=== PATIENT | female | born 1990 | race Caucasian/White ===

== ENCOUNTER 2020-12-05 11:19 | Outpatient (CLI) | payer OTHER, SELFPAY ==
[2020-12-05 19:31] LABS: Basophils Percent Auto 0.4 % (0.2-1.2); Eosinophils Absolute Auto 0.1 K/mm3 (0-0.3); Hematocrit 38.1 % (37.0-47.0); Hemoglobin 12.4 g/dL (12.0-15.0); Immature Granulocyte Absolute 0.09 K/mm3 (0.00-0.031); Immature Granulocyte Percent A 0.8 % (0-0.5); Lymphocytes Absolute Auto 2.36 K/mm3 (0.9-3.2); Lymphocytes Percent Auto 21.2 % (18.3-44.2); Mean Corpuscular HGB Conc 32.5 g/dl (32-36); Mean Corpuscular Hemoglobin 27.3 pg (26-34); Mean Corpuscular Volume 83.7 fl (80-100); Mean Platelet Volume 10.7 fl (7.4-10.4); Monocytes Absolute Auto 0.7 K/mm3 (0.1-0.6); Monocytes Percent Auto 6.2 % (2.6-8.5); Neutrophils Absolute Auto 7.8 K/mm3 (1.3-6.7); Neutrophils Percent Auto 70.4 % (45.5-73.1); Platelet Count Result 277 k/mm3 (150-375); Red Blood Count 4.55 M/mm3 (4.2-5.4); Red Cell Distribution Width 14.6 % (11.5-14.5); White Blood Count 11.1 K/mm3 (4.5-10.0)
[2020-12-05 20:22] LABS: HIV 1/2 Ab P24 Ag Result Negative (Negative)
[2020-12-05 20:29] LABS: Hepatitis C Virus Antibody Negative (Negative)
[2020-12-05 20:34] LABS: Hepatitis B Surface Antigen Negative (Negative)
[2020-12-06 11:30] LABS: Rapid Plasma Reagin Non-Reactive (NonReactive)
== END 2020-12-05 11:20 | disposition home or self-care (01) ==
LOC: ANHBWCLAB 11:22
PROVIDERS: Visit Provider Obstetrics & Gynecology
DX: Z34.90 Encounter for supervision of normal pregnancy, unspecified, unspecified trimester (principal); Z3A.00 Weeks of gestation of pregnancy not specified
CPT/HCPCS: 36415; 85025; 86592; 86703; 86762; 86803; 86850; 86900; 86901; 87340; G0432

== ENCOUNTER → 2020-12-08 15:04 | Outpatient (CLI) | payer OTHER, SELFPAY ==
--- NOTE | ~2020-12-08 | US_ITS ---
US OB <=14 wk fetus w TV DATE: 12/08/2020 15:37 INDICATION: Gestational age determination TECHNIQUE: Real-time imaging via transabdominal and transvaginal approaches COMPARISON: None FINDINGS: The uterus measures 9.2 cm height, 4.6 cm AP and 6.3 cm transverse dimension. A normally sh aped intrauterine gestational sac is identified, with normal surrounding decidual reaction. Normal am ount of amniotic fluid. pole and yolk sac are identified. heart rate of 120 bpm. [place]-rump length measurement averages 0.49 cm, consistent with estimated gestational age of 6 weeks 1 day +/- 4 days; MAURO 08/02/2021 2.5 x 2.9 cm left ovarian cyst. The left ovary is otherwise unremarkable. The right ovary is not visu alized. No pelvic mass or abnormal pelvic fluid collection is evident. IMPRESSION: Estimated gestational age of 6 weeks 1 day +/- 4 days; MAURO 08/02/2021 2.5 x 2.9 cm left ovarian cyst Reviewed, dictated and finalized at [facility]. Reviewed, dictated and finalized at location [facility]. IMPRESSION: Estimated gestational age of 6 weeks 1 day +/- 4 days; MAURO 08/02/20 21 2.5 x 2.9 cm left ovarian cyst
== END ==
PROVIDERS: Visit Provider Obstetrics & Gynecology
DX: Z36.9 Encounter for antenatal screening, unspecified (principal); Z3A.01 Less than 8 weeks gestation of pregnancy
CPT/HCPCS: 76801; 76817

== ENCOUNTER → 2021-03-09 12:59 | Outpatient (CLI) | payer OTHER, SELFPAY ==
--- NOTE | ~2021-03-09 | US_ITS ---
US OB /maternal detail DATE: 03/09/2021 13:35 INDICATION: anatomy assessment TECHNIQUE: Real-time imaging and Doppler analysis COMPARISON: 12/09/2019 obstetrical ultrasound FINDINGS: Live oliveira No cerebral ventriculomegaly. The cerebellum, cisterna magna and nuchal fold appear carina l. The spine appears intact. The diaphragm is intact. 4 chamber heart. kidney s are unremarkable, without hydronephrosis. Fluid is demonstrated in the stomach and urin elliot bladder. Intrauterine gestation, fetus in longitudinal lie, vertex presentation, with heart rate of 161 bpm. Fundal placenta. No evidence of placenta previa or abruption. Normal amount of amniotic fluid by subj ective assessment. Biparietal diameter 4.44 cm; 19 weeks 3 days Head circumference 16.45 cm; 19 weeks 1 day Abdominal circumference 15.93 cm; 21 weeks Femur length 3.41 cm; 20 weeks 5 days Composite age by Hadlock formula based upon the current measurements would be 20 weeks 1 day +/- 1 we ek 3 days, with MAURO of 07/2021, compared to 08/02/2021 by the prior 12/09/2019 obstetrical ultrasound examination. Estimated weight: 369.6 +/- 55 g Head circumference/abdominal circumference measures 1.03, slightly below normal range of 1.07-1.25. Femur length/head circumference 20.76, below normal range of 16.67-19.87. IMPRESSION: Normal anatomy screen Reviewed, dictated and finalized at [facility]. Reviewed, dictated and finalized at location [facility]. IMPRESSION: Normal anatomy screen
== END ==
PROVIDERS: Visit Provider Obstetrics & Gynecology
DX: Z34.90 Encounter for supervision of normal pregnancy, unspecified, unspecified trimester (principal); Z3A.00 Weeks of gestation of pregnancy not specified
CPT/HCPCS: 76805

== ENCOUNTER 2021-04-29 13:37 | Observation (INO) | payer OTHER, SELFPAY ==
[2021-04-29 13:51] VITALS: BP 116/66; PULSE 93
[2021-04-29 13:57] VITALS: BMI 40.8
--- NOTE | 2021-04-29 13:57 | OBADM ---
This patient, Sade Martinez, admitted to the OB room OB Post 117 for observation. Patient/family oriented to hospital policies and general routines including ID bracelet, bed and alarms, visiting hours, pain management, procedures, bathroom and other care routines, personal items, smoking policy, room service/diet, and visiting hours. Patient/Family are encouraged to report perceived risks to care and to ask questions if they do not understand what they are told or what they should do.
[2021-04-29 14:01] VITALS: BP 102/62; PULSE 91
[2021-04-29 14:16] VITALS: BP 106/61; PULSE 85
--- NOTE | 2021-04-29 14:17 | PC.NURSE ---
Dr. Peck informed of this pt's arrival in ED with c/o decreased movement since yesterday, hadn't felt baby move at all today. Fever x's 3 days with sore throat, and runny nose. Informed NST reactive at 26 3/7 wks gestation, no contractions, pt marking good movement and current temp 98.4. Orders received.
[2021-04-29 14:21] VITALS: BP 116/66; PULSE 93
--- NOTE | 2021-04-29 15:38 | PC.NURSE ---
Dr. Peck informed pt's rapid strep was negative. Orders for discharge received.
[2021-04-30 17:32] LABS: SARS-CoV-2 RNA PCR Positive
--- NOTE | 2021-04-30 19:25 | PC.NURSE ---
Dr. Arredondo was informed of pt's positive COVID test. MD requested me to notify pt. I called Sade and informed her of her positive COVID status, to continue self-quarantine at home for 10 days, the rest of the household needs to quarantine for 14 days and should not go to school. Pt states she just still has a sore throat, nasal congestion, and runny nose. Informed that if she should start experiencing any shortness of breath she should go to the Emergency Department. Also, to continue to monitor movement. Pt verbalizes understanding.
--- NOTE | 2021-05-16 15:55 | PM.OBTRLD ---
OB - Triage/Final Diagnosis Visit Information Comments/Additional reasons for admission: I have assessed the risk for this patient, Sade Martinez, and determined that she would benefit from observation care. Evaluation Laboratory results: Laboratory Tests 04/29/21 04/29/21 14:28 14:28 SARS-CoV-2 RNA (RT-PCR) Positive A Grp A Beta Strep Ag Negative Final Diagnosis (1) Symptoms of upper respiratory infection (URI): Code(s): R09.89 - Other specified symptoms and signs involving the circulatory and respiratory systems Status: Acute
== END 2021-04-29 16:03 | disposition home or self-care (01) ==
PROVIDERS: Admitting Provider Student in an Organized Health Care Education/Training Program; Visit Provider Student in an Organized Health Care Education/Training Program
DX: O99.512 Diseases of the respiratory system complicating pregnancy, second trimester (principal); J06.9 Acute upper respiratory infection, unspecified; Z3A.26 26 weeks gestation of pregnancy
CPT/HCPCS: 59025; 87081; 87880; C9803; G0378; G0379; U0003; U0005

== ENCOUNTER 2021-05-05 19:34 | Emergency (ER) | payer OTHER, SELFPAY ==
--- NOTE | ~2021-05-05 | CT_ITS ---
EXAMINATION: CTA chest PE protocol DATE: 05/06/2021 00:13 INDICATION: Chest pain and shortness of breath TECHNIQUE: Computed tomography angiography (CTA) of the chest was performed with 100 mL Omnipaque-350 intravenous contrast timed to evaluate the pulmonary arteries. Coronal maximum intensity projection 3D-reconstructions were created by the technologist. The dose-length product (DLP) was 599.51 mGy-cm. Automated exposure control and iterative reconstruction technique were employed. COMPARISON: None. FINDINGS: The pulmonary arteries are moderately well-opacified. No pulmonary embolus is identified. T here are patchy groundglass opacities in the lungs. More focal airspace opacity is seen in the right lower lobe. There is no pleural effusion or pneumothorax. The heart size is normal. There is mild med iastinal lymphadenopathy. IMPRESSION: 1. No pulmonary embolus identified. 2. Patchy airspace opacities consistent with pneumonia, likely COVID 19. 3. Mild mediastinal lymphadenopathy, likely reactive. Reviewed, dictated and finalized at location A.
--- NOTE | ~2021-05-05 | XR_ITS ---
EXAMINATION: XR chest 1V portable INDICATION: Shortness of breath, COVID 19 positive TECHNIQUE: Portable AP chest at 2150 hours COMPARISON: None available FINDINGS: There are minimal airspace opacities of the right lung base. There is no pleural effusion o r pneumothorax. The cardiomediastinal silhouette is normal. IMPRESSION: 1. Minimal right basilar airspace opacity, consistent with atelectasis versus pneumonia. Reviewed, dictated and finalized at location A. IMPRESSION: 1. Minimal right basilar airspace opacity, consistent with atelectasis versus p neumonia.
[2021-05-05 19:46] VITALS: BP 125/60; PULSE 89; RESP 20; TEMP 36.4; O2SAT 100
[2021-05-05 20:09] VITALS: RESP 20
--- NOTE | 2021-05-05 20:21 | PC.NURSE ---
Pt ambulatory to room 17 wihtout difficulty. Reports she is 7 months and due in July. Tested positive for COVID 04/26 after her daughter tested positive. pt's younger daughter then also became infected. Pt reports she feels out of breath at night when she lies down, and also when eating. Able to speak in complete sentences without any s/s of respiratory difficulty. skin pwd. resps even, nonlabored, regular. also c/o intermittent cough, noted by this RN, dry and nonproductive.
--- NOTE | 2021-05-05 21:11 | ED.GENADULT ---
HPI - General Adult General Chief complaint: Unspecified Stated complaint: Has covid Time Seen by Provider: 05/05/21 19:52 Source: patient Mode of arrival: ambulatory Limitations: no limitations History of Present Illness HPI narrative: Pt presents for evaluation of difficulty breathing. She indicates she came here six days ago as she had sensation of decreased movement. She entered through the ER and was transferred to OB Dept. At that time she had what she thought was a common cold. She was swabbed for strep, which was negative. She was swabbed for COVID and received a call the following day informing her that the test was positive. She was not having significant breathing problems at the time of her evaluation here six days ago. Three days ago she noted that she felt like she couldn't catch a deep breath. She states when eating she feels like she needs to gasp for air . At rest, she feels like she needs to take a deep breath. She experiences episodes where she has a sharp pain shooting across her chest. This primarily occurs with deep inspiration. She denies significant cough per se. She states she has not had a fever in the past four to five days. She denies chills and leg swelling. She has some nausea which is difficult her for to determine whether it is related to her . She is currently 27 weeks gestation. She denies any vaginal bleeding/abdominal pain. . OBGYHoang is Dr Arredondo. She does not smoke. She has not received COVID vaccine. No hx of COVID infection prior to this event. No personal or family hx of VTE. Blood type O positive Related Data Home Medications Medication Instructions Recorded Confirmed docosahexaenoic acid 200 mg capsule 200 mg PO DAILY 12/05/20 04/29/21 acetaminophen 500 mg PO Q6H PRN 04/29/21 04/29/21 Allergies Allergy/AdvReac Type Severity Reaction Status Date / Time amoxicillin Allergy Mild RASH Verified 05/05/21 19:50 nitrofurantoin Allergy Mild RASH Verified 05/05/21 19:50 Penicillins Allergy Anaphylaxis Verified 05/05/21 19:50 Review of Systems Review of Systems: CONSTITUTIONAL: Denies fever, chills, or sweats. EYES: Denies visual changes, redness, or discharge. ENT: Denies rhinorrhea, congestion, sore throat, or otalgia. CARDIOVASCULAR: Reports intermittent chest pain. Denies palpitations, or edema. RESPIRATORY: Reports shortness of breath and sensation that she cannot catch a deep breath. GASTROINTESTINAL: Denies abdominal pain, nausea, vomiting, or diarrhea. GENITOURINARY: Denies dysuria or hematuria. SKIN: Denies rash or itching. MUSCULOSKELETAL: Denies back pain, joint pain, or myalgia. NEUROLOGIC: Denies headache, numbness, dizziness, or weakness. PSYCHIATRIC: Denies anxiety or depression. [facility] Past Medical History Medical History Acid reflux Anxiety Surgical History Surgical History Previous section x2 [place] teeth extracted Family History Family History Grandparent Stomach cancer grandmother Other Breast cancer aunt Father Lymph node cancer Social History Social History Smoking status: Never smoker Alcohol intake: current Alcohol use details: maybe 2x per year Substance use: never Exam Narrative: GENERAL: Well-appearing, well-nourished, and in no acute distress. HEAD: Normocephalic, atraumatic. EYES: PERRLA and EOMI. ENT: Nares clear, no rhinorrhea or epistaxis. Mucous membranes moist. Oropharynx without tonsillar hypertrophy exudate or other lesions. Bilateral TMs pearly welch nonbulging NECK: Supple. No adenopathy or masses. No carotid bruits or JVD CHEST: Clear to auscultation. No respiratory distress. No wheezes rales or rhonchi HEART: Regular
--- NOTE | 2021-05-05 21:37 | ECG_ITS ---
Measurements Intervals [place] Rate: 88 P: 30 NE: 147 QRS: -21 QRSD: 84 T: 20 QT: 358 QTc: 435 Interpretive Statements SINUS RHYTHM DELAYED PRECORDIAL R/S TRANSITION LOW VOLTAGE- PRECORDIAL LEADS BASELINE ARTIFACT- I, II, AVR, AVL, V1 BORDERLINE ECG Electronically Signed On 05-06-2021 6:52:10 CDT by Isaias Robledo D.O.
[2021-05-05 22:59] LABS: Basophils Percent Auto 0.3 % (0.2-1.2); Eosinophils Absolute Auto 0.1 K/mm3 (0-0.3); Eosinophils Percent Auto 0.6 % (0-4.4); Hematocrit 40.4 % (37.0-47.0); Hemoglobin 12.8 g/dL (12.0-15.0); Immature Granulocyte Absolute 0.23 K/mm3 (0.00-0.031); Lymphocytes Absolute Auto 2.66 K/mm3 (0.9-3.2); Lymphocytes Percent Auto 22.8 % (18.3-44.2); Mean Corpuscular HGB Conc 31.7 g/dl (32-36); Mean Corpuscular Hemoglobin 26.2 pg (26-34); Mean Corpuscular Volume 82.6 fl (80-100); Mean Platelet Volume 10.2 fl (7.4-10.4); Monocytes Absolute Auto 0.6 K/mm3 (0.1-0.6); Monocytes Percent Auto 5.3 % (2.6-8.5); Neutrophils Absolute Auto 8.1 K/mm3 (1.3-6.7); Platelet Count Result 232 k/mm3 (150-375); Red Blood Count 4.89 M/mm3 (4.2-5.4); Red Cell Distribution Width 14.6 % (11.5-14.5); White Blood Count 11.7 K/mm3 (4.5-10.0)
[2021-05-05 23:11] LABS: INR 0.8; Prothrombin Time 11.5 Seconds (11.1-14.7)
[2021-05-05 23:12] LABS: Albumin Level 3.7 g/dL (3.5-5.1); Aspartate Amino Transferase 34 U/L (14-36); Bilirubin,Total 0.6 mg/dL (0.2-1.3); Blood Urea Nitrogen 7 mg/dL (7-17); Carbon Dioxide 22 mmol/L (22-30); Estimated CRCL calculation 159 ml/min; Estimated Glomerular Filt Rate > 60; Partial Thromboplastin Time 30.9 SECONDS (22.3-36.8)
--- NOTE | 2021-05-05 23:13 | PC.NURSE ---
Pt moved from ED room 18 to ED room 13 via wheelchair in main dept. Report to Tiffany.
[2021-05-05 23:14] LABS: D Dimer 0.75 ug/mL (<0.48)
[2021-05-05 23:23] LABS: Troponin I < 0.012 ng/mL (0.000-0.034)
[2021-05-05 23:33] VITALS: BP 122/82; PULSE 88; RESP 18; O2SAT 98
[2021-05-05 23:33] LABS: Alanine Aminotransferase 33 U/L (4-35); Alkaline Phosphatase 148 U/L (38-126); Anion Gap 8 mmol/L (8-16); Calcium 8.7 mg/dL (8.4-10.2); Chloride 103 mmol/L (98-107); Glucose 80 mg/dL (65-110); Potassium 3.8 mmol/L (3.4-5.0); Sodium 133 mmol/L (137-145)
--- NOTE | 2021-05-05 23:33 | PC.NURSE ---
Assumed care of pt at this time. Pt alert, resting on stretcher. Pt updated on POC.
[2021-05-06 01:51] VITALS: BP 121/72; PULSE 96; RESP 16; O2SAT 98
== END 2021-05-06 02:24 | disposition home or self-care (01) ==
PROVIDERS: Nurse Practitioner; Emergency Provider Emergency Medicine
DX: O98.512 Other viral diseases complicating pregnancy, second trimester (principal); U07.1 COVID-19; R06.02 Shortness of breath; O99.612 Diseases of the digestive system complicating pregnancy, second trimester; K21.9 Gastro-esophageal reflux disease without esophagitis; Z3A.27 27 weeks gestation of pregnancy; R91.8 Other nonspecific abnormal finding of lung field; R94.31 Abnormal electrocardiogram [ECG] [EKG]
CPT/HCPCS: 36415; 71045; 71275; 80053; 84484; 85025; 85380; 85610; 85730; 93005; 99284; Q9967

== ENCOUNTER 2021-05-18 11:24 | Outpatient (CLI) | payer OTHER, SELFPAY ==
[2021-05-18 14:22] LABS: Glucose 1 Hour PP 50gm Dose 146 mg/dL
[2021-05-18 15:03] LABS: HIV 1/2 Ab P24 Ag Result Negative (Negative)
== END 2021-05-18 11:25 | disposition home or self-care (01) ==
PROVIDERS: Visit Provider Obstetrics & Gynecology
DX: Z34.90 Encounter for supervision of normal pregnancy, unspecified, unspecified trimester (principal); Z3A.00 Weeks of gestation of pregnancy not specified
CPT/HCPCS: 36415; 82947; 86703; G0432

== ENCOUNTER 2021-07-16 14:12 | Outpatient (CLI) | payer OTHER, SELFPAY ==
[2021-07-16 14:26] LABS: Glucose Point of Care 116 mg/dl (65-105)
--- NOTE | 2021-07-16 15:24 | PC.NURSE ---
1430--Phone call to Dr. Arredondo that pt. was sent over by the office for blood sugar check. Reported accucheck of 116, orders to DC home.
== END 2021-07-16 14:30 | disposition home or self-care (01) ==
LOC: ANHOBOP 14:16 → ANHOBPP 14:17
PROVIDERS: Visit Provider Obstetrics & Gynecology
DX: R73.09 Other abnormal glucose (principal)
CPT/HCPCS: 82948; 99199

== ENCOUNTER 2021-07-26 16:24 | Outpatient (CLI) | payer OTHER, SELFPAY ==
[2021-07-26 16:43] LABS: Hematocrit 36.8 % (37.0-47.0); Hemoglobin 11.9 g/dL (12.0-15.0); Mean Corpuscular HGB Conc 32.3 g/dl (32-36); Mean Corpuscular Hemoglobin 25.8 pg (26-34); Mean Corpuscular Volume 79.7 fl (80-100); Mean Platelet Volume 10.6 fl (7.4-10.4); Platelet Count Result 238 k/mm3 (150-375); Red Blood Count 4.62 M/mm3 (4.2-5.4); Red Cell Distribution Width 14.4 % (11.5-14.5); White Blood Count 10.1 K/mm3 (4.5-10.0)
[2021-07-27 09:08] LABS: Rapid Plasma Reagin Non-Reactive (NonReactive)
== END 2021-07-26 16:25 | disposition home or self-care (01) ==
LOC: ANHLAB 16:27
PROVIDERS: Visit Provider Obstetrics & Gynecology
DX: O34.211 Maternal care for low transverse scar from previous cesarean delivery (principal); Z3A.39 39 weeks gestation of pregnancy
CPT/HCPCS: 36415; 85027; 86592; 86850; 86900; 86901

== ENCOUNTER 2021-07-27 08:35 | Inpatient (IN) | payer OTHER, SELFPAY ==
--- NOTE | 2021-07-26 15:52 | P.HP_ITS ---
H&P: HPI History of Present Illness Date/Time: 07/26/21 15:52 at 39+1 with two prior C sections coming in for elective repeat C/S + BTL. She has had GDMA1 diet controlled this . No complaints today Chief Complaint: prior C/S, desires sterilization Review of Systems Review of Systems: All systems reviewed & are unremarkable except as noted in HPI and below PMFSH Past Medical History Medical History Acid reflux Anxiety Surgical History Surgical History Previous section x2 [place] teeth extracted Family History Family History Grandparent Stomach cancer grandmother Other Breast cancer aunt Father Lymph node cancer Social History Social History Smoking status: Never smoker Alcohol intake: current Alcohol use details: maybe 2x per year Substance use: never Spiritual care concerns: No Meds Home Medications and Allergies Home Medications Medication Instructions Recorded Confirmed Type docosahexaenoic acid 200 mg capsule 200 mg PO DAILY 12/05/20 07/21/21 History acetaminophen 500 mg PO Q6H PRN 04/29/21 07/21/21 History docusate sodium 50 mg capsule 50 mg PO DAILY 06/05/21 07/21/21 History Allergies Allergy/AdvReac Type Severity Reaction Status Date / Time amoxicillin Allergy Mild RASH Verified 07/18/21 11:16 nitrofurantoin Allergy Mild RASH Verified 07/18/21 11:16 Penicillins Allergy Anaphylaxis Verified 07/18/21 11:16 Exam Const: General: healthy appearing, no acute distress, well developed, alert and awake Resp: Auscultation: clear to auscultation bilaterally Cardio: Rate: regular rate Rhythm: regular rhythm GI: Inspection: non-distended GI Palp: Yes Soft to palpation, No Tenderness to palpation present (GI) and Yes Other GI palpation findings present (gravid) Extrem: General: no pedal edema and no calf tenderness Psych: Mental Status: mental status grossly normal Assessment and Plan Assessment and plan (1) Previous delivery affecting : Code(s): O34.219 - Maternal care for unspecified type scar from previous delivery Status: Acute Assessment and Plan: at 39+1 with two prior C section, planning repeat C/S. She signed consent after risks, benefits, complications, and alternatives discussed for C/S + BTL. She expressed understanding and wishes to proceed (2) Encounter for sterilization: Code(s): Z30.2 - Encounter for sterilization Status: Acute (3) Gestational diabetes: Code(s): O24.419 - Gestational diabetes mellitus in , unspecified control Status: Acute Assessment and Plan: testing has been reassuring, diet control
[2021-07-27] VITALS (67 sets, daily range): BP systolic 68–125; BP diastolic 35–82; PULSE 59–166; RESP 14–18; TEMP 36.3–36.8; O2SAT 89–100; BMI 43.7
[2021-07-27 09:06] LABS: Glucose Point of Care 82 mg/dl (65-105)
[2021-07-27] MEDS: LACTATED RINGERS 1,000 ML 125 ML IV CONT (09:13)
--- NOTE | 2021-07-27 09:22 | LDADM ---
This patient, Sade Martinez, was admitted to Labor/Delivery/Recovery 120 on 07/27/21 at 08:35. Plans for section, pain management and were discussed with patient. Patient/family oriented to hospital policies and general routines including ID bracelet, bed and alarms, visiting hours, pain management, procedures, bathroom and other care routines, personal items, smoking policy, room service/diet and guest tray routines, security routines, and visiting hours. Patient/Family are encouraged to report perceived risks to care and to ask questions if they do not understand what they are told or what they should do. See OBIX for further documentation.
--- NOTE | 2021-07-27 10:05 | WPDHPUPDATE1 ---
History and Physical Update Update Date/Time: 07/27/21 10:05 History and Physical has been reviewed, including an updated exam of the patient. There are NO changes in the patient's condition. Risks, benefits, and alternatives have been discussed and questions answered. Patient agrees to proceed with procedure.
--- NOTE | 2021-07-27 10:08 | WPDANESEPPF ---
Anes - Initial Pre Proc Eval Procedure: Operation Date: 07/27/21 09:00 Proposed Procedures p Repeat Section with Bilateral Tubal Sterilization - Barbie Arredondo MD Date/Time: 07/27/21 10:08 Surgeon: Barbie Arredondo MD Pre Op Diagnosis: Section Patient Data Age: 31 Gender: F Height: 1.6 m Weight: 112 kg Last Vital Signs Temp 36.4 C 07/27/21 09:48 Pulse 85 07/27/21 09:19 BP 125/66 07/27/21 09:19 Allergies Allergy/AdvReac Type Severity Reaction Status Date / Time amoxicillin Allergy Mild RASH Verified 07/18/21 11:16 nitrofurantoin Allergy Mild RASH Verified 07/18/21 11:16 Penicillins Allergy Anaphylaxis Verified 07/18/21 11:16 Home Medications Medication Instructions Recorded Confirmed Type docosahexaenoic acid 200 mg capsule 200 mg PO DAILY 12/05/20 07/27/21 History acetaminophen 500 mg PO Q6H PRN 04/29/21 07/21/21 History docusate sodium 50 mg capsule 50 mg PO DAILY 06/05/21 07/21/21 History Laboratory Tests 07/27/21 09:02 POC Capillary Glucose 82 mg/dl mg/dl (65-105) Patient hx anesthesia problems: none Family hx anesthesia problems: none Results Review: All pre-operative results and documents have been reviewed as part of the pre-operative evaluation. [facility] Past Medical History Medical History Acid reflux Anxiety Surgical History Surgical History Previous section x2 [place] teeth extracted Family History Family History Grandparent Stomach cancer grandmother Other Breast cancer aunt Father Lymph node cancer Social History Social History Smoking status: Never smoker Alcohol intake: current Alcohol use details: maybe 2x per year Substance use: never Spiritual care concerns: No Anes - Eval Final PreProcedure Day of Procedure 07/27/21 10:08 Patient weight: morbidly obese Heart: regular rate and rhythm Lungs: clear to auscultation Airway: Mallampati scale class II Neurological: alert and oriented Last oral intake: >/= 8 hours ASA classification: III Emergent: no Anesthetic plan: proceed Anesthesia type and monitoring: regional spinal and standard monitoring Results Review: All pre-operative results and documents have been reviewed as part of the pre-operative evaluation. Informed Consent: The patient's anesthetic plan and its attendant risks and benefits were discussed with the patient/family/POA. Questions were solicited and answers provided to the satisfaction of the patient/family/POA.
--- NOTE | 2021-07-27 10:14 | P.OP_ITS ---
Procedure Note - Detailed Date of Procedure 07/27/21 Pre-op Diagnosis Prior Section X 2, desires sterilization Post-op Diagnosis same Procedure Performed Repeat LTCS + BTL Surgeon Barbie Arredondo MD Anesthesia spinal Indications at 39+1 with two prior C sections and desires sterilization Findings Male , cephalic, Apgars 8/9; weight 8# 3oz; normal uterus, tubes, ovaries Description of Procedure She was taken to the operating room where spinal anesthesia was obtained and found to be adequate. She was prepared and draped in the normal sterile fashion in the dorsal supine position with a leftward tilt. A Pfannenstiel skin incision was made over her prior incision with a scalpel and extended to the underlying layer of fascia. The fascia was incised in the midline with a scalpel and extended laterally with the Chahal scissors. The underlying rectus muscles were dissected off sharply. Rectus muscles were in the midline. The peritoneum was entered sharply and extended inferiorly and superiorly with good visualization of the bladder. The bladder blade was inserted. The vesicouterine peritoneum was tented up and entered sharply with the Metzenbaum scissors. The bladder flap was created sharply. The bladder blade was reinserted. The lower uterine segment was incised in a transverse fashion with the scalpel. The incision was digitally stretched in a cephalocaudal direction. The membranes were ruptured with clear fluid noted. The infant's head was delivered atraumatically. The shoulders and body were delivered easily. The cord was clamped x2 and cut. The was passed to the awaiting nurse. Cord gas and cord blood was obtained. The placenta was manually extracted. The uterus was exteriorized cleared of all clots and debris. The uterine incision was closed using 0 Vicryl in a running locked fashion. A 2nd layer of the same suture was used for hemostasis and reinforcement. Attention was then turned to the fallopian tubes. A defect was made in the right mesosalpinx. Two free ties of 0 plain gut were placed. The intervening segment of fallopian tube was excised. The same procedure was then performed on the left fallopian tube. The uterine incision was reinspected. There was a bleeding point that was easily controlled using 0 Vicryl [id number] suture. The uterus was returned to the abdomen. The gutters were cleared of all clots and debris. The uterine incision was reinspected and found to be hemostatic. The rectus muscles were inspected. Any bleeding points were cauterized. The rectus muscles were reapproximated using 0 Vicryl [id number] sutures. The fascia was then closed using 0 Vicryl in a running fashion. The subcutaneous tissue was irrigated. Any bleeding points were cauterized. The subcutaneous layer was reapproximated using 2 0 Vicryl [id number] sutures. The skin was closed with Insorb absorbable asa. She tolerated the procedure well. Sponge, lap, needle, and instrument counts w ere correct x2. She was taken to the recovery room in stable condition. Estimated Blood Loss 590 Drains Yes ([place]) Packing No Pathology yes Complications No immediate complications Condition stable Disposition floor
[2021-07-27] MEDS: ceFAZolin 2 GM/D5W 50 ML 2 GM/50 ML BAG IVPB (10:19)
[2021-07-27] MEDS: OXYTOCIN 30 UNITS/NS 500 ML 30 UNITS/500 ML BAG 125 UNITS IV CONT (12:04)
[2021-07-27] MEDS: LORATADINE 10 MG TABLET PO (12:58)
--- NOTE | 2021-07-27 14:52 | OBPPTRN ---
Patient transferred to post room # 283 via stretcher. Support person present. Oriented to unit, room, information board, rooming in, admission packet and security measures. Patient verbalizes understanding.
--- NOTE | 2021-07-27 15:00 | PC.NURSE ---
Consult with pt., discussed initiation of pumping due to infant in Level II. Mother does not want to pump at this time. Pump kit provided and set up bedside. Instructions given on breast pump care and usage, pumping schedule, nipple care, and collection and storage of breast milk. Encouraged breast massage and manual expression to stimulate supply. Assessed patient for correct flange size, placement and draw. Patient verbalizes and demonstrates understanding of instructions. Advised mother to call out for her RN when ready to pump and to check flange size while pumping.
[2021-07-27] MEDS: DEXTROSE 5%/0.45% SOD CHL 1,000 ML 125 ML IV CONT (16:00)
[2021-07-27] MEDS: HYDROcodone/acetaminophen (*CRX) 5-325 MG TABLET 1 TAB PO (19:32)
[2021-07-27] MEDS: diphenhydrAMINE HCl INJ 50 MG/ML VIAL IV PUSH (20:13)
[2021-07-27] MEDS: IBUPROFEN 600 MG TABLET PO (22:38)
[2021-07-28 00:30] VITALS: BP 119/67; PULSE 86; RESP 16; TEMP 37.6; O2SAT 99
[2021-07-28 04:24] VITALS: BP 101/79; PULSE 80; RESP 16; TEMP 37.2; O2SAT 98
[2021-07-28 04:47] LABS: Basophils Percent Auto 0.3 % (0.2-1.2); Eosinophils Absolute Auto 0.1 K/mm3 (0-0.3); Eosinophils Percent Auto 0.5 % (0-4.4); Hematocrit 29.8 % (37.0-47.0); Hemoglobin 9.5 g/dL (12.0-15.0); Immature Granulocyte Absolute 0.08 K/mm3 (0.00-0.031); Immature Granulocyte Percent A 0.6 % (0-0.5); Lymphocytes Percent Auto 14.9 % (18.3-44.2); Mean Corpuscular HGB Conc 31.9 g/dl (32-36); Mean Corpuscular Hemoglobin 25.2 pg (26-34); Mean Platelet Volume 10.9 fl (7.4-10.4); Monocytes Percent Auto 8.1 % (2.6-8.5); Neutrophils Absolute Auto 9.6 K/mm3 (1.3-6.7); Neutrophils Percent Auto 75.6 % (45.5-73.1); Platelet Count Result 194 k/mm3 (150-375); Red Blood Count 3.77 M/mm3 (4.2-5.4); Red Cell Distribution Width 14.5 % (11.5-14.5); White Blood Count 12.8 K/mm3 (4.5-10.0)
[2021-07-28] MEDS: MULTIVIT/MIN/PREN/FOL AC/IRON TABLET 1 TAB PO (07:45)
[2021-07-28] MEDS: POLYSACCHARIDE IRON COMPLEX 150 MG CAPSULE PO ×2 (07:45→16:46)
[2021-07-28] MEDS: HYDROcodone/acetaminophen (*CRX) 5-325 MG TABLET 1 TAB PO ×3 (07:46→23:35)
[2021-07-28] MEDS: DOCUSATE SODIUM 100 MG CAPSULE PO ×2 (07:46→16:47)
[2021-07-28] MEDS: IBUPROFEN 600 MG TABLET PO ×3 (07:46→23:34)
[2021-07-28 08:00] VITALS: BP 97/56; PULSE 70; RESP 16; TEMP 37.1; O2SAT 99
--- NOTE | 2021-07-28 10:13 | PM.OBPNVD ---
OB - PN: Subj Subjective Date/time seen: 07/28/21 10:13 Patient comments: no complaints, pain well controlled, incisional pain, tolerating diet, flatus present and other (Lochia similar to menses) baby status: doing well OB - PN: Obj Data Labs CBC & Chem 7: 07/28/21 04:21 Labs: Laboratory Results - last 24 hr 07/28/21 04:21 WBC 12.8 H RBC 3.77 L Hgb 9.5 L Hct 29.8 L MCV 79.0 L MCH 25.2 L MCHC 31.9 L RDW 14.5 Plt Count 194 MPV 10.9 H Immature Gran % (Auto) 0.6 H Neut % (Auto) 75.6 H Lymph % (Auto) 14.9 L [place] % (Auto) 8.1 Eos % (Auto) 0.5 Baso % (Auto) 0.3 Lymph # (Auto) 1.90 [place] # (Auto) 1.0 H Eos # (Auto) 0.1 Baso # (Auto) 0.0 Abs Immat Gran (auto) 0.08 H Absolute Neuts (auto) 9.6 H Absolute Nucleated RBC 0.0 Nucleated RBC % 0.0 OB - PN A/P Plan day: 1 (s/p C section, doing well) Plan: routine care Time Spent With Patient Time: Total time spent is greater than 50% in coordination of care (as documented) at patient's floor/unit and/or counseling patient: Exam Const: General: no acute distress Resp: Auscultation: clear to auscultation bilaterally Cardio: Rate: regular rate Rhythm: regular rhythm GI: Inspection: non-distended, incision (Intact without erythema, drainage, or induration) and other (Fundus firm and nontender at umbilicus) GI Palp: Yes abdominal tenderness (appropriate ) and Yes Soft to palpation Extrem: General: no edema
--- NOTE | 2021-07-28 11:16 | WPDANLDPN2 ---
Anes-Prog Note L&D Date/Time: 07/28/21 11:16 Comfortable throughout: section Neuraxial method: spinal Epidural/Spinal procedure site: tender Neuro status: Neuro function grossly intact. Cardiovascular status: normal Respiratory status: normal Airway patency: baseline Mental status: baseline Post-Op hydration status: normal Vital Signs: Last Vital Signs Temp 98.7 F 07/28/21 08:00 Pulse 70 07/28/21 08:00 Resp 16 07/28/21 08:00 BP 97/56 L 07/28/21 08:00 Pulse Ox 99 07/28/21 08:00 Pain score (VAS): 2 I/O: Intake & Output 07/27/21 07/28/21 07/28/21 23:59 07:59 15:59 Intake Total 600 Output Total 2350 300 Balance -1750 -300 Post-procedural complaints: pruritis severe, treatment refractory (meds X two. continue to experience mild itching this am however, pt reports improving) Patient feedback: Patient satisfied with anesthetic care.
--- NOTE | 2021-07-28 11:17 | WPDANLDNPN2 ---
Anes-Prog Note L&D-Neuraxial Date/Time: 07/28/21 11:17 Neuraxial medications: intrathecal PF morphine Opiod-related complaints: pruritis severe, treatment refractory Patient feedback: Patient satisfied with post-operative pain management.
[2021-07-28 18:26] VITALS: BP 131/69; PULSE 72; RESP 18; TEMP 36.3; O2SAT 100
[2021-07-29] MEDS: HYDROcodone/acetaminophen (*CRX) 10-325 MG TABLET 1 TAB PO (01:28)
--- NOTE | 2021-07-29 01:37 | PC.NURSE ---
Daylight Savings Time For Daylight Savings Time Ending in the Fall - Clocks are moved back. For [facility], the time of change occurs at 0200 hrs. Time is taken from the enlisted aircrew/aerial observer/gunner. This entry on the patient's chart recognizes the change in time reflected during documentation. Example: 2 entries for vital signs may be charted for 0200 hrs.
[2021-07-29] MEDS: HYDROcodone/acetaminophen (*CRX) 5-325 MG TABLET 1 TAB PO ×4 (06:15→19:37)
[2021-07-29] MEDS: IBUPROFEN 600 MG TABLET PO ×3 (06:15→19:36)
[2021-07-29 08:30] VITALS: BP 93/46; PULSE 72; RESP 16; TEMP 36.9; O2SAT 98
[2021-07-29] MEDS: MULTIVIT/MIN/PREN/FOL AC/IRON TABLET 1 TAB PO (09:07)
[2021-07-29] MEDS: DOCUSATE SODIUM 100 MG CAPSULE PO ×2 (09:07→16:44)
[2021-07-29] MEDS: POLYSACCHARIDE IRON COMPLEX 150 MG CAPSULE PO ×2 (09:08→16:44)
--- NOTE | 2021-07-29 10:45 | PM.OBPNVD ---
OB - PN: Subj Subjective Date/time seen: 07/29/21 10:45 Patient comments: no complaints, pain well controlled, tolerating diet, flatus present and other (Ambulating and voiding without problems. Lochia similar to menses) baby status: doing well OB - PN: Obj Data Labs CBC & Chem 7: 07/28/21 04:21 OB - PN A/P Plan day: 2 (s/p C section, doing well) Plan: routine care Time Spent With Patient Time: Total time spent is greater than 50% in coordination of care (as documented) at patient's floor/unit and/or counseling patient: Exam Const: General: no acute distress Resp: Auscultation: clear to auscultation bilaterally Cardio: Rate: regular rate Rhythm: regular rhythm GI: Inspection: non-distended, incision (Intact without erythema, drainage, or induration) and other (Fundus firm and nontender below umbilicus) GI Palp: Yes abdominal tenderness (appropriate) and Yes Soft to palpation Extrem: General: no edema
--- NOTE | 2021-07-29 17:08 | PC.NURSE ---
RN continues to stress the importance of keeping baby under phototherapy; mother instructed to only take baby out of lights for feedings and diaper changes; mother verbalizes understanding.
--- NOTE | 2021-07-29 17:10 | PC.NURSE ---
1300-Baby was given supplemental bottle; mother states that baby does not like the formula and made RN aware that baby spit up a large amount of formula.
[2021-07-29 19:00] VITALS: BP 155/75; PULSE 66; RESP 18; TEMP 36.4; O2SAT 99
[2021-07-30] MEDS: HYDROcodone/acetaminophen (*CRX) 5-325 MG TABLET 1 TAB PO ×3 (00:04→13:10)
[2021-07-30] MEDS: HYDROcodone/acetaminophen (*CRX) 10-325 MG TABLET 1 TAB PO (04:30)
[2021-07-30] MEDS: IBUPROFEN 600 MG TABLET PO ×2 (04:30→13:11)
[2021-07-30 08:00] VITALS: BP 135/79; PULSE 78; RESP 16; TEMP 36.8
--- NOTE | 2021-07-30 08:07 | PM.OBPNVD ---
OB - PN: Subj Subjective Date/time seen: 07/30/21 08:07 Patient comments: no complaints, pain well controlled, tolerating diet, flatus present and other (Lochia less than menses. Ambulating and voiding without problems) baby status: doing well Narrative: No RICHEY/visual changes. Still c/o pain at upper buttocks, pain meds take the edge off OB - PN: Obj Data Labs CBC & Chem 7: 07/28/21 04:21 OB - PN A/P Plan day: 3 (s/p section, doing well and ready to be discharged home) Plan: routine care, discharge home and other (Follow up in office in 1-2 weeks) Time Spent With Patient Time: Total time spent is greater than 50% in coordination of care (as documented) at patient's floor/unit and/or counseling patient: Time with patient: less than 15 minutes Exam Const: General: no acute distress Resp: Auscultation: clear to auscultation bilaterally Cardio: Rate: regular rate Rhythm: regular rhythm GI: Inspection: non-distended, incision (Intact without erythema, drainage, or induration) and other (Fundus firm and nontender below umbilicus) GI Palp: Yes abdominal tenderness (appropriate) and Yes Soft to palpation Extrem: General: no edema
--- NOTE | 2021-07-30 08:08 | PM.OBDSVD ---
DS: Admitting Diagnosis Discharge Date 07/30/2021 Admitting Diagnosis Prior c section, desires sterilization DS: Discharge Diagnosis Discharge Diagnosis (1) Previous delivery affecting : Code(s): O34.219 - Maternal care for unspecified type scar from previous delivery Status: Acute (2) Encounter for sterilization: Code(s): Z30.2 - Encounter for sterilization Status: Acute OB - DS: Summary OB Procedures : None and Other (gestational diabetes) OB Procedures Intrapartum: low cervical, transverse and Tubal ligation OB Procedures: : None Peripartum Data Delivery Method: Section Procedures: Procedures Operation Date: 07/27/21 09:00 Actual Procedure Side Surgeon p Repeat Section with Bilateral Tubal Sterilization Not Applicable Barbie Arredondo MD complications: none Status at Discharge Functional status at discharge: independent ambulation Overall status at discharge: patient is progressing back to baseline Time Spent with Patient Time attestation: Total time spent providing and/or coordinating discharge services: Time spent: Less than 30 minutes DS: Data Data Completed and Pending Pending studies at discharge: Pending at discharge 07/27/21 11:03 Surgical [PTH] Routine Surgical [PTH] Routine Surgical [PTH] Routine Discharge Plan Discharge Attending physician on discharge: Barbie Arredondo Discharging Clinician: Barbie Arredondo Patient Disposition: Home, Self-Care Activity: may shower and pelvic rest Diet: as tolerated Wound Care Instructions: incision open to air Patient Instructions: Antibiotic Form Stand Alone Forms: General Discharge Information Follow-up/Referrals: Barbie Arredondo MD [Physician] - 1 Week Discharge Medications: New hydrocodone-acetaminophen 5-325 mg Tablet 1 tablet PO Q4H PRN (Reason: Moderate Pain (4-6)) Qty: 40 RF: 0 ibuprofen 600 mg Tablet 600 mg PO Q6H PRN (Reason: Cramping) Qty: 60 RF: 0 Continued Stool Softener 50 mg capsule 50 mg PO DAILY RF: 0 DHA 200 mg capsule 200 mg PO DAILY RF: 0 acetaminophen 500 mg Capsule 500 mg PO Q6H PRN (Reason: Pain) RF: 0 Date of admission: 07/27/21 08:35 Primary Care Provider: PHYSICIAN,PRODUCTION OPERATIONS INSPECTOR Admitting Provider: Barbie Arredondo Attending physician on admission: Barbie Arredondo Condition: Stable
--- NOTE | 2021-07-30 08:15 | PC.NURSE ---
Consult with pt., observed mother is able to independently latch with appropriate positioning/alignment. eagerly latches on first attempt with long rhythmical draws and frequent swallowing noted. She denies any nipple discomfort, is feeding as required and waking to feed if needed. Infant has had at least 8 effective feedings in the past 24 hours, and is currently meeting outcomes for weight, output, jaundice and feeding frequencies. Mother states she feels confident to continue effective at home. Reviewed transition to breast milk, signs of adequate intake, and engorgement/relief. Instructed to call ICP if intake/output less than required. Reviewed regular medications mother is taking. Information provided per Miroslava. Reviewed community resources on the [email or web address] website and in the Mom/Baby guide. Information on outpatient services provided. Mother has no further questions at this time. Instructed feeding should be initiated three hours from start of last feeding or if feeding cues are noted before until seen by ICP. Mother voiced understanding of information shared. Mother has initiated pumping due to earlier infant in Level II and under bili lights, mother's milk is now in and now has 2.5 oz at bedside. Mother states she plans to offer EBM after due to weight loss. Reviewed Jaundice, weight and output are within parameters at this time and supplementation is not required. Mother states she feels she will continue for the next few days.
[2021-07-30] MEDS: DOCUSATE SODIUM 100 MG CAPSULE PO (09:18)
[2021-07-30] MEDS: POLYSACCHARIDE IRON COMPLEX 150 MG CAPSULE PO (09:18)
[2021-07-30] MEDS: MULTIVIT/MIN/PREN/FOL AC/IRON TABLET 1 TAB PO (09:18)
--- NOTE | 2021-07-30 12:50 | PC.NURSE ---
Patient received instruction on viewing the discharge video Mother & Baby Care, The First Two Weeks . Patient was given the opportunity and encouraged to ask questions. Patient verbalized understanding of information shared and has been given the mother/baby guide for home reference.
[2021-08-01 10:56] VITALS: BP 135/61; PULSE 89; RESP 16; TEMP 37; O2SAT 100
== END 2021-07-30 14:25 | disposition home or self-care (01) | DRG 785 ==
LOC: ANHLDR 08:39 → ANHOB2 14:35
PROVIDERS: Admitting Provider Obstetrics & Gynecology; Visit Provider Obstetrics & Gynecology
PROC: 10D00Z1 Extraction of Products of Conception, Low, Open Approach (ICD-10-PCS; CPT 59514; principal; 2021-07-27 09:00)
DX: O34.219 Maternal care for unspecified type scar from previous cesarean delivery (principal); Z30.2 Encounter for sterilization; O24.420 Gestational diabetes mellitus in childbirth, diet controlled; Z3A.39 39 weeks gestation of pregnancy; Z37.0 Single live birth
CPT/HCPCS: 36415; 82948; 85025; 85027; 86592; 86850; 86900; 86901; 88302; 88307; A9270; J0131; J0690; J1200; J2274; J2370; J2405; J2590; J7120

== ENCOUNTER 2021-10-18 11:44 | Outpatient (CLI) | payer OTHER, SELFPAY ==
[2021-10-18 12:43] LABS: Glucose Fasting 105 mg/dL
[2021-10-18 15:16] LABS: Glucose 1 Hour 181 mg/dL
[2021-10-18 15:42] LABS: Glucose 2 Hour 163 mg/dL
== END 2021-10-18 11:45 | disposition home or self-care (01) ==
PROVIDERS: Visit Provider Obstetrics & Gynecology
DX: O24.419 Gestational diabetes mellitus in pregnancy, unspecified control (principal); Z3A.00 Weeks of gestation of pregnancy not specified
CPT/HCPCS: 36415; 82951

== ENCOUNTER 2022-08-16 11:56 | Emergency (ER) | payer OTHER, SELFPAY ==
[2022-08-16 13:35] VITALS: BP 127/73; PULSE 77; RESP 18; TEMP 37; O2SAT 100
--- NOTE | 2022-08-16 15:09 | ED.URI ---
HPI - URI/Sore Throat General Chief Complaint: Upper Respiratory Infection Stated Complaint: sorethroat,fever Source: patient Mode of arrival: ambulatory History of Present Illness HPI Narrative: This is a 32-year-old female presented to our urgent care with complaints of throat pain that started yesterday. Patient also notes that she had chills with fever she did take Motrin at home to to treat her fever. The patient denies SOB, CP, palpitation, extremity numbness, lightheadedness, dizziness, constipation, diarrhea, chills, or fever. Discharge instructions reviewed with patient, as well as provided in writing per nursing staff. The instructions also include specific and strict return/GO TO THE ER as well as f/u information. All questions have been answered, and the patient and/or family deny any further questions with discharge and discharge plan. Related Data Home Medications Medication Instructions Recorded Confirmed sertraline 50 mg tablet 50 mg PO DAILY 08/16/22 08/16/22 Allergies Allergy/AdvReac Type Severity Reaction Status Date / Time Penicillins AdvReac Severe Anaphylaxis Verified 08/16/22 14:48 amoxicillin AdvReac Mild RASH Verified 08/16/22 14:48 nitrofurantoin AdvReac Mild RASH Verified 08/16/22 14:48 Review of Systems Review of Systems: A 14 organ system Review of Systems was performed and pertinent positives included in the HPI, otherwise remaining ROS is negative. [facility] Past Medical History Medical History Acid reflux Anxiety Surgical History Surgical History History of bilateral tubal ligation 07/27/21 Previous section x3 [place] teeth extracted Family History Family History Grandparent Stomach cancer grandmother Other Breast cancer aunt Father Lymph node cancer Social History Social History Smoking status: Never smoker Alcohol intake: current Alcohol use details: maybe 2x per year Substance use: never Spiritual care concerns: No Exam Narrative: GENERAL: This is a well-nourished, well-developed patient, in no apparent distress. HEAD: normocephalic, atraumatic. EYES: PERRL. Sclera clear/white. Vision is grossly intact. EARS: External ears normal, auditory canals clear and without drainage, TMs normal without perforation. Hearing grossly intact. NOSE: External nose normal with no obvious nasal discharge, nares without redness, no rhinorrhea. THROAT: Mucous membranes moist, posterior pharynx with edema and erythema enlarged tonsils NECK: Neck supple, non-tender without lymphadenopathy, masses or thyromegaly. CARDIOVASCULAR: Regular rate and rhythm without murmurs, gallops, or rubs. RESPIRATORY: Clear to auscultation. Breath sounds equal bilaterally. No wheezes, rales, or rhonchi. GASTROINTESTINAL: Abdomen soft, non-tender, nondistended. Bowel sounds are active. No hepato-splenomegaly, or palpable masses. No guarding. SKIN: warm, intact with no suspicious lesions or rash, good texture and turgor. NEURO: awake, alert, and oriented to person, place and time. There were no obvious focal neurologic abnormalities. EXTREMITIES: Normal range of motion. No edema. No calf tenderness. Course Course Emergency Course: Patient tested positive for strep will discharge home with azithromycin 250 mg x6 days Level of Care: Express Care Visit Vital Signs Vital signs: Vital Signs Temperature 98.6 F 08/16/22 13:35 Pulse Rate 77 08/16/22 13:35 Respiratory Rate 18 08/16/22 13:35 Blood Pressure 127/73 08/16/22 13:35 Pulse Oximetry 100 08/16/22 13:35 Oxygen Delivery Room Air 08/16/22 13:35 Temperature 98.6 F 08/16/22 13:35 Pulse Rate 77 08/16/22 13:35 Respiratory Rate 18 08/16/22 13:3
== END 2022-08-16 15:15 | disposition home or self-care (01) ==
PROVIDERS: Emergency Provider Nurse Practitioner
DX: J02.0 Streptococcal pharyngitis (principal); K21.9 Gastro-esophageal reflux disease without esophagitis; F41.9 Anxiety disorder, unspecified
CPT/HCPCS: 87880; 99213; G0463

== ENCOUNTER 2022-10-20 18:17 | Emergency (ER) | payer OTHER, SELFPAY ==
[2022-10-20] VITALS (10 sets, daily range): BP systolic 115–141; BP diastolic 45–120; PULSE 92–114; RESP 15–26; TEMP 38.3; O2SAT 95–100
--- NOTE | ~2022-10-20 | CT_ITS ---
EXAMINATION: CT abdomen pelvis w con DATE: 10/20/2022 22:57 INDICATION: Nausea and vomiting. Diarrhea. Fever. TECHNIQUE: Computed tomography (CT) of the abdomen and pelvis was performed with 100 mL Omnipaque 350 intravenous contrast. Automated exposure control and iterative reconstruction technique were employe d. The dose-length product was 1235.96 mGy-cm. COMPARISON: Chest CT 05/05/2021 FINDINGS: The visualized portions of the lung bases demonstrate mild atelectasis. No pleural effusion . The heart size is normal. No pericardial effusion. The liver, gallbladder, spleen, pancreas, adrena l glands, and kidneys are normal. There are no dilated loops of bowel. The appendix is normal. There are no pathologically enlarged lymph nodes. There is no free intraperitoneal fluid. There is mild tho racic spondylosis. IMPRESSION: 1. No etiology for the patient's symptoms. Reviewed, dictated and finalized at location A. L DEVELOPER
[2022-10-20 18:39] LABS: Basophils Percent Auto 0.2 % (0.2-1.2); Hematocrit 40.8 % (37.0-47.0); Hemoglobin 13.4 g/dL (12.0-15.0); Immature Granulocyte Absolute 0.11 K/mm3 (0.00-0.031); Immature Granulocyte Percent A 0.6 % (0-0.5); Lymphocytes Absolute Auto 0.93 K/mm3 (0.9-3.2); Mean Corpuscular HGB Conc 32.8 g/dl (32-36); Mean Corpuscular Hemoglobin 26.2 pg (26-34); Mean Corpuscular Volume 79.8 fl (80-100); Mean Platelet Volume 9.2 fl (7.4-10.4); Monocytes Percent Auto 5.2 % (2.6-8.5); Neutrophils Absolute Auto 16.5 K/mm3 (1.3-6.7); Platelet Count Result 342 k/mm3 (150-375); Red Blood Count 5.11 M/mm3 (4.2-5.4); Red Cell Distribution Width 13.9 % (11.5-14.5); White Blood Count 18.6 K/mm3 (4.5-10.0)
[2022-10-20 18:48] LABS: Alanine Aminotransferase 39 U/L (6-35); Albumin Level 4.4 g/dL (3.5-5.1); Alkaline Phosphatase 107 U/L (38-126); Anion Gap 10 mmol/L (8-16); Aspartate Amino Transferase 25 U/L (14-36); Bilirubin,Total 0.5 mg/dL (0.2-1.3); Blood Urea Nitrogen 14 mg/dL (7-17); Calcium 8.8 mg/dL (8.4-10.2); Carbon Dioxide 22 mmol/L (22-30); Chloride 105 mmol/L (98-107); Estimated Glomerular Filt Rate > 60; Glucose 119 mg/dL (65-110); Lipase 62 U/L (23-300); Potassium 3.6 mmol/L (3.4-5.0); Sodium 137 mmol/L (137-145)
[2022-10-20 19:03] LABS: Appearance Urine Clear (Clear); Bilirubin Urine 1+ (Negative); Blood Urine Negative (Negative); Color Urine Yellow (Yellow); Glucose Urine UA Negative (Negative); Ketones Urine Negative (Negative); Leukocyte Esterase Ur Negative LEU/UL (Negative); Nitrate Urine Negative (Negative); Protein Urine Trace mg/dL (Negative); Specific Grav Ur >= 1.030 (1.001-1.035); Urobilinogen Urine 0.2 mg/dL (<2.0); pH Urine 5.5 (5.0-9.0)
[2022-10-20 19:11] LABS: Mucus Urine Heavy /lpf; RBC Urine 0-2 /hpf (0-2); Squamous Epithelial Cell Urine Occasional /hpf (Few); WBC Urine 0-3 /hpf
[2022-10-20 19:16] LABS: Influenza A QL RT-PCR Negative (Negative); Influenza B QL RT-PCR Negative (Negative); RSV RNA, RT-PCR Negative (Negative); SARS-CoV-2 RNA PCR Negative
[2022-10-20 19:20] LABS: Add Urine Microscopic? YES
--- NOTE | 2022-10-20 21:41 | ED.GENADULT ---
HPI - General Adult General Chief complaint: Fever Stated complaint: fever, dehydration Time Seen by Provider: 10/20/22 21:16 History of Present Illness HPI narrative: 32-year-old female presented to the emergency department for evaluation of low-grade fever with associated nausea vomiting diarrhea. Patient states her symptoms all started this morning. Patient primarily was having upper abdominal cramping with nausea and diarrhea. Patient denies any blood in her stool. Patient states she did begin having some emesis upon arrival to the emergency department. Patient denies any prior history of gallbladder disease or pancreatitis. Patient states she does not drink alcohol daily. Patient does have a prior history of 3 C-sections and her youngest child is 13 months old. Related Data Home Medications Medication Instructions Recorded Confirmed sertraline 50 mg tablet 50 mg PO DAILY 08/16/22 08/16/22 Allergies Allergy/AdvReac Type Severity Reaction Status Date / Time Penicillins AdvReac Severe Anaphylaxis Verified 10/20/22 18:25 amoxicillin AdvReac Mild RASH Verified 10/20/22 18:25 nitrofurantoin AdvReac Mild RASH Verified 10/20/22 18:25 Review of Systems Review of Systems: CONSTITUTIONAL: Denies fever, chills, or sweats. EYES: Denies visual changes, redness, or discharge. ENT: Denies rhinorrhea, congestion, sore throat, or otalgia. CARDIOVASCULAR: Denies chest pain, palpitations, or edema. RESPIRATORY: Denies cough or dyspnea. GASTROINTESTINAL: See HPI GENITOURINARY: Denies dysuria or hematuria. SKIN: Denies rash or itching. MUSCULOSKELETAL: Denies back pain, joint pain, or myalgia. NEUROLOGIC: Denies headache, numbness, or weakness. [facility] Past Medical History Medical History Acid reflux Anxiety Surgical History Surgical History History of bilateral tubal ligation 07/27/21 Previous section x3 [place] teeth extracted Family History Family History Grandparent Stomach cancer grandmother Other Breast cancer aunt Father Lymph node cancer Social History Social History (Reviewed 09/06/21 @ 10:42 by Magy Mota [facility] Smoking status: Never smoker Alcohol intake: current Alcohol use details: maybe 2x per year Substance use: never Spiritual care concerns: No Exam Narrative: APPEARANCE: Well appearing, no pain, no distress, well-nourished. HEAD: normocephalic, atraumatic. EYES: PERRLA/EOMI, conjunctivae clear. NOSE: Normal no drainage NECK: Supple. No adenopathy, no masses. RESPIRATORY: Airway patent, respirations nonlabored. Clear to auscultation bilaterally, no rales, rhonchi, wheezing. CARDIOVASCULAR: Regular rate and rhythm without murmurs rubs or gallops. ABDOMINAL: Right upper quadrant epigastric tenderness to palpation. Normal bowel sounds. MUSCULOSKELETAL: Moves all extremities. Strength/ROM intact, No edema, No calf tenderness. NEURO: Alert. Cranial nerves II through XII intact. Grossly intact SKIN: Warm, dry. Normal Color Course Course Emergency Course: Patient does have a low-grade fever and a leukocytosis of 18.6. No elevation of T bili and AST, mild elevation of ALT and no elevation of alk phos. Patient does have a normal lipase. Clinical exam was concerning for gallbladder versus pancreatitis. CT scan is being ordered to evaluate for cholecystitis, pancreatitis, colitis, enteritis, diverticulitis. Patient declined medications for pain control. Patient is being treated with IV fluids and IV Zofran for nausea control. Patient was also treated with IV Tylenol for her low-grade fever. Patient's heart rate did improve with rehydration. CT scan showed no acute normalities. Patient's UA was negative for infection. Patient was also negative for influenza COVID a
[2022-10-20] MEDS: SODIUM CHLORIDE 0.9% IV 1,000 ML 999 ML IV CONT (22:00)
[2022-10-20] MEDS: ONDANSETRON INJ 4 MG/2 ML VIAL IV PUSH (22:01)
[2022-10-20] MEDS: BELLADONNA ALK/PHENOB ELIX 10 ML, MAG HYDROX/ALUMINUM HYD/SIMETH 30 ML, LIDOCAINE HCL 2... PO (23:31)
[2022-10-21 00:01] VITALS: BP 113/52; PULSE 100; O2SAT 97
[2022-10-21 00:16] VITALS: BP 110/48; PULSE 100; O2SAT 97
[2022-10-21 00:43] VITALS: BP 113/52; PULSE 92; RESP 16; O2SAT 97
--- NOTE | 2022-10-31 15:08 | PC.NURSE ---
LATE ENTRY This note is being entered to document information to the patient's record. The following information was omitted on [10/20/22], by [Laura Flores]. Tylenol Stop time 1660.
== END 2022-10-21 00:44 | disposition home or self-care (01) ==
PROVIDERS: Emergency Medicine; Emergency Provider Emergency Medicine; PCP Hospitalist
DX: R11.2 Nausea with vomiting, unspecified (principal); R19.7 Diarrhea, unspecified; Z20.822 Contact with and (suspected) exposure to COVID-19; K21.9 Gastro-esophageal reflux disease without esophagitis; F41.9 Anxiety disorder, unspecified
CPT/HCPCS: 36415; 74177; 80053; 81001; 81025; 83690; 85025; 87637; 96361; 96365; 96375; 99284; A9270; J0131; J2405; J7030; Q9967

== ENCOUNTER 2023-06-23 15:15 | Outpatient (CLI) | payer OTHER, SELFPAY ==
--- NOTE | ~2023-06-23 | XR_ITS ---
Right foot Technique: AP, oblique, and lateral views were obtained. Clinical History: Fracture Findings: No acute fracture or dislocation is seen. Osseous alignment is anatomic. Joint spaces are p reserved without erosive or degenerative change. Soft tissues are unremarkable. Impression: Unremarkable right foot radiographs. Reviewed, dictated and finalized at location . Impression: Unremarkable right foot radiographs.
== END 2023-06-23 15:16 | disposition home or self-care (01) ==
LOC: ANHIMG 15:24
PROVIDERS: PCP Hospitalist; Visit Provider Hospitalist
DX: S92.504A Nondisplaced unspecified fracture of right lesser toe(s), initial encounter for closed fracture (principal); X58.XXXA Exposure to other specified factors, initial encounter
CPT/HCPCS: 73630